=== PATIENT | female | born 1940 | race Native Hawaiian/Other Pacific Islander ===

== ENCOUNTER 2020-05-19 08:26 | Outpatient (CLI) | payer OTHER ==
[~2020-05-19] VITALS: Ht 165.1 cm; Wt 82.1 kg
== END 2020-05-19 18:58 | disposition home or self-care (01) ==
LOC: NM 08:26
PROVIDERS: ATTEND Specialist
DX: I25.119 Atherosclerotic heart disease of native coronary artery with unspecified angina pectoris (principal); I10 Essential (primary) hypertension
CPT/HCPCS: A9500; J2785